=== PATIENT | male | born 1945 | race Caucasian/White ===

== ENCOUNTER → 2023-05-03 14:39 | Outpatient (CLI) | payer MEDICARE, OTHER, SELFPAY ==
--- NOTE | 2023-05-03 | DI.NM.S_ITS ---
PROCEDURE: NM EXERCISE TREADMILL NON NUC COMPARISON: None. INDICATIONS: CHEST PRESSURE FINDINGS: the patient exercised for 9 minutes and 9 seconds reaching 99% of maximum predicted heart rate. 10.1METS, MADYSON -45%. Patient started having 3/10 chest pain in second stage that increased to 6/10 at peak exercise and resolved during recovery. Resting ECG showed sinus rhythm with RBBB. With exercise, there were mild horizontal ST depressions in the anteroseptal leads. RBBB resolved during exercise. No significant ectopy. IMPRESSION: Abnormal treadmill non-nuclear stress test with excellent exercise tolerance (MADYSON -45%). Patient started having 3/10 chest pain in second stage that increased to 6/10 at peak exercise and resolved during recovery. Resting ECG showed sinus rhythm with RBBB. With exercise, there were mild horizontal ST depressions in the anteroseptal leads. RBBB resolved during exercise. [place] to [place]. Dictated by: Brendan Andrade MD on 05/04/2023 at 14:35 Approved by: Brendan Andrade MD on 05/04/2023 at 14:42
== END ==
PROVIDERS: PCP Family Medicine; Referring Provider Family Medicine; Visit Provider Family Medicine
DX: R07.89 Other chest pain (principal); R94.39 Abnormal result of other cardiovascular function study
CPT/HCPCS: 93017